=== PATIENT | male | born 1960 | race Caucasian/White ===

== ENCOUNTER 2018-08-02 15:11 | Emergency (ER) | payer MEDICAID ==
[~2018-08-02] VITALS: Ht 177.8 cm; Wt 90.9 kg
[2018-08-02] MEDS ORDERED: morphine 4 MG/ML inj SYRINge IM ONE ×2 (15:30→16:15)
--- NOTE | 2018-08-02 15:41 | NUR ---
to xray via [facility]
--- NOTE | 2018-08-02 16:37 | NUR ---
PATIENT WANTS TO HOLD OFF ON RECIEVING MORPHINE AT THIS TIME
[2018-08-02] MEDS ORDERED: ketorolac trometh. 30mg/ml inj. IV ONE (16:50)
[2018-08-02] MEDS ORDERED: ketamine 10mg/ml 20ml inj IV ONE ×3 (17:05→17:20)
[2018-08-02] MEDS ORDERED: ketamine 50 mg/ml 10ml vial IV ONE (17:40)
[2018-08-02] MEDS ORDERED: ondansetron/PF 4mg/2ml inj IV ONE (18:10)
[2018-08-02 18:24] VITALS: BP 142/99
== END 2018-08-02 18:32 | disposition home or self-care (01) ==
LOC: ER 15:14
DX: S52.592A Other fractures of lower end of left radius, initial encounter for closed fracture (principal); S63.285A Dislocation of proximal interphalangeal joint of left ring finger, initial encounter; S96.812A Strain of other specified muscles and tendons at ankle and foot level, left foot, initial encounter; S90.32XA Contusion of left foot, initial encounter; W13.2XXA Fall from, out of or through roof, initial encounter; Y93.89 Activity, other specified; Y92.89 Other specified places as the place of occurrence of the external cause; Y99.9 Unspecified external cause status
CPT/HCPCS: 25605; 26770; 73100; 73110; 73140; 73610; 73630; 96372; 96374; 96375; 99285; J1885; J2270; J2405